=== PATIENT | male | born 1950 | race Caucasian/White ===

== ENCOUNTER 2016-06-23 07:16 | Emergency (ER) | payer BC ==
[2016-06-23] MEDS ORDERED: Sodium Chloride 0.9% 10 ML Syringe FLUSH PRN (07:28)
[2016-06-23] MEDS ORDERED: Ondansetron 4 MG/2 ML SDV IVPUSH ONE (07:30)
[2016-06-23] MEDS ORDERED: Ketorolac 30 MG/ML SDV IVPUSH ONE (07:30)
[2016-06-23] MEDS ORDERED: Sodium Chloride 0.9% 1,000 ML IV ONE (07:30)
[2016-06-23] MEDS ORDERED: HYDROmorphone 1 MG/ML Syringe IVPUSH ONE (07:30)
[2016-06-23 08:05] LABS: CHLORIDE,CL 107 mmol/L (98-107); SODIUM,NA 143 mmol/L (136-145)
[2016-06-23 10:50] VITALS: BP 102/64
--- NOTE | 2016-06-24 13:02 | ER ---
Date of Service: 06/23/2016 SUBJECTIVE: Sky presents to the emergency room with complaints of left flank pain that radiates into his groin. He states that the discomfort is sharp in nature. He states that he was recently treated with antibiotics for bronchitis starting approximately 2 weeks ago. He is on Coumadin for mitral valve replacement and has noticed that he has had some blood clots in his urine since Wednesday. He did have his INR checked yesterday and it was 2.4. His normal is 2.5-3. He states that he is also experiencing nausea and has vomited several times. PAST MEDICAL HISTORY: 1. Status post mitral valve replacement with mechanical valve. 2. Hypertension. 3. Dyslipidemia. MEDICATIONS: 1. Lipitor 40 mg at bedtime. 2. Amlodipine 5 mg p.o. daily. 3. Warfarin 6 mg p.o. daily. 4. Metoprolol tartrate 25 mg p.o. b.i.d. ALLERGIES: NKDA. REVIEW OF SYSTEMS: General: No fever or chills. HEENT: No sore throat, rhinorrhea, congestion. Respiratory: No shortness of breath. Cardiac: Denies any substernal chest pain. No jaw, arm, neck, or back pain. GI: Please see history of present illness. Again complains of left-sided flank pain. Complains of gross hematuria. Pain radiates into his groin area. Neurologic: No fainting, blackouts, or lightheadedness. PHYSICAL EXAMINATION: General: This is a 66-year-old male patient, in mild amount of distress. Vital Signs: Blood pressure is 106/53, temperature is 35, respiratory rate 16, O2 saturations 95%. Skin: Warm, pink, and dry. HEENT: Head is normocephalic, atraumatic. Mouth, oral mucosa is moist. No erythema or exudate noted at the hypopharynx. Neck: Supple. No masses. There is no lymphadenopathy. Lungs: Clear to auscultation. Heart: Regular rate and rhythm. Abdomen: Soft, nontender. There is no hepatosplenomegaly noted. There are no masses noted. Extremities: Without edema. LABORATORY DATA: Urinalysis was obtained, he was noted to have moderate occult blood. He did have a slightly cloudy specimen. Specific gravity is 1.015, negative for glucose and ketones. Also negative for nitrites and leukocytes. He did have few bacteria. Comprehensive metabolic panel was obtained and was all noted to be within normal limits with the exception of mildly elevated creatinine at 1.5. C-reactive protein was less than 0.2. CBC was obtained. WBC is 7.1, hemoglobin is 13.4, platelets are 170. CT scan of the patient's abdomen and pelvis were obtained without contrast. The patient had evidence of ectatic left ureter consistent with frequent urinary tract infection versus recently passed ureteral stone. There was no evidence of any other acute pathology. ASSESSMENT: Left-sided flank pain, secondary to passed kidney stone versus urinary tract infection. PLAN: The patient was started on Maurepas 5/325 with instructions to take 1 every 4-6 hours as needed for pain. Also started on Bactrim DS 1 twice daily for 10 days. All questions were answered. Drink plenty of fluids. MWK: 06/23/2016 16:38:18 MODL: 06/23/2016 23:05:23 /[id number]
== END 2016-06-23 10:00 | disposition home or self-care (01) ==
LOC: VM.ED 07:16
DX: R10.9 Unspecified abdominal pain (principal); E78.5 Hyperlipidemia, unspecified; I10 Essential (primary) hypertension; Z79.01 Long term (current) use of anticoagulants; Z79.899 Other long term (current) drug therapy
CPT/HCPCS: 74176; 80053; 81001; 83605; 85025; 85610; 86140; 96361; 96374; 96375; 99284; J1170; J1885; J2405; J7030